=== PATIENT | male | born 1970 | race Caucasian/White ===

== ENCOUNTER 2017-06-19 10:00 | Inpatient (IN) | payer OTHER ==
[~2017-06-19] VITALS: Ht 175.3 cm; Wt 78.2 kg
[~2017-06-19 10:00] MED LIST: AMLO-511 PO; CHLO25CA5 PO; OMEP10CA2 PO; [UNRECOGNIZED DRUG - OTHER] PO
[2017-06-19] MEDS ORDERED: HALO50VI4 IM (10:07)
[2017-06-19 10:37] LABS: GLUCOSE,POINT OF CARE 93 MG/DL (70-110)
[2017-06-19 11:02] LABS: BASOPHILS % (AUTO) 0.2 % (0.0-2.0); EOSINOPHILS % (AUTO) 0.1 % (1.0-6.0); HEMATOCRIT 43.2 % (41-53); HEMOGLOBIN 14.8 g/dL (13.5-17.5); LYMPHOCYTES # (AUTO) 0.9 K/uL (1.0-4.8); LYMPHOCYTES % (AUTO) 7.9 % (22.0-44.0); MEAN CORPUSCULAR HEMOGLOBIN 32.7 pg (26.0-34.0); MEAN CORPUSCULAR HGB CONC 34.2 G/dL (31.0-37.0); MEAN CORPUSCULAR VOLUME 96 fL (80-100); MONOCYTES # (AUTO) 0.9 K/uL (0.1-1.0); MONOCYTES % (AUTO) 7.6 % (2.0-9.0); NEUTROPHILS # (AUTO) 10.1 K/uL (1.8-7.7); NEUTROPHILS % (AUTO) 84.2 % (40.0-70.0); PLATELET COUNT (AUTO) 106 K/uL (150-450); RED BLOOD CELL COUNT(AUTO) 4.52 MIL/uL (4.50-5.90); RED CELL DISTRIBUTION WIDTH 16.8 % (11.5-14.5)
[2017-06-19 11:22] LABS: ANION GAP 17 mmol/L (8-16); CALCIUM, TOTAL 8.2 mg/dL (8.8-10.5); CARBON DIOXIDE 21 mmol/L (22-29); CHLORIDE 100 mmol/L (98-107); CREATININE 0.72 mg/dL (0.60-1.30); GLOMERULAR FILTR. RATE CALC > 60 mL/min (>60); POTASSIUM 4.6 mmol/L (3.5-5.1); SODIUM SERUM 138 mmol/L (136-145); UREA NITROGEN, BLOOD 6 mg/dL (7-18)
[2017-06-19 11:25] LABS: ALANINE AMINOTRANSFERASE 48 U/L (12-78); ALBUMIN 4.2 g/dL (3.4-5.0); ASPARTATE AMINOTRANSFERASE 111 U/L (15-37); BILIRUBIN,TOTAL 1.5 mg/dL (0.1-1.0); TOTAL PROTEIN, SERUM 7.9 g/dL (6.4-8.2)
[2017-06-19] MEDS ORDERED: MAGNESIUM SULFATE 2 GM, MVI, ADULT NO.1 WITH VIT K 10 ML, THIAMINE HCL 100 MG, FOLIC AC... IV ONE ×5 (11:30)
[2017-06-19] MEDS ORDERED: LORazepam 2 MG/ML VIAL IM ONE (11:30)
[2017-06-19] MEDS: SODIUM CHLORIDE 0.9% 1,000 ML IV ONE ×2 (12:05→12:17)
[2017-06-19] MEDS ORDERED: ONDANSETRON HCL 4 MG/2 ML VIAL IVP ONE (12:15)
[2017-06-19] MEDS ORDERED: LORazepam 2 MG/ML VIAL IVP ONE (12:15)
[2017-06-19] MEDS ORDERED: ACETAMINOPHEN 325 MG TABLET PO PRN ×2 (12:45→13:00)
[2017-06-19] MEDS ORDERED: 0.9% SODIUM CHLORIDE 10 ML SYRINGE IVP PRN (12:45)
[2017-06-19] MEDS ORDERED: ONDANSETRON HCL 4 MG/2 ML VIAL IVP PRN ×2 (12:45→13:00)
[2017-06-19] MEDS ORDERED: MAGNESIUM SULFATE 2 GM in DEXTROSE 5%-WATER 50 ML IV PRN (13:00)
[2017-06-19] MEDS ORDERED: MAGNESIUM SULFATE 4 GM/WATER 100 ML IV PRN (13:00)
[2017-06-19] MEDS ORDERED: MAGNESIUM HYDROXIDE SUSPENSION 30 ML UDCUP PO PRN (13:00)
[2017-06-19] MEDS: SODIUM CHLORIDE 0.9% 1,000 ML IV SCH (13:00)
[2017-06-19] MEDS ORDERED: POTASSIUM CHLORIDE 20 MEQ ER TABLET PO PRN (13:00)
[2017-06-19] MEDS ORDERED: MAGNESIUM OXIDE 400 MG TABLET PO PRN (13:00)
[2017-06-19] MEDS ORDERED: POTASSIUM CHL 10 MEQ/WATER 50 ML IV PRN (13:00)
[2017-06-19] MEDS: PANTOPRAZOLE SODIUM 40 MG/VIAL IVP SCH (14:05)
[2017-06-19] MEDS: ChlordiazePOXIDE HCL 25 MG CAPSULE PO SCH ×2 (14:05→17:21)
[2017-06-19 14:50] VITALS: BP 157/100
[2017-06-19 16:21] VITALS: BP 155/102
[2017-06-19] MEDS ORDERED: INFLUENZA VIRUS VACCINE QVS 2017-18 (3YR+)/PF 60 MCG/0.5 ML SYRINGE IM ONE (17:00)
[2017-06-19 17:16] VITALS: BP 155/98
[2017-06-19] MEDS: LORazepam 2 MG/ML VIAL IVP PRN (18:24)
[2017-06-19 19:44] VITALS: BP 152/101
[2017-06-19] MEDS: DOCUSATE SODIUM 100 MG CAPSULE PO SCH (20:18)
[2017-06-20 00:03] VITALS: BP 137/91
[2017-06-20] MEDS: ChlordiazePOXIDE HCL 25 MG CAPSULE PO SCH ×5 (00:07→23:44)
[2017-06-20] MEDS: SODIUM CHLORIDE 0.9% 1,000 ML IV SCH ×2 (02:20→16:59)
[2017-06-20 04:55] VITALS: BP 154/97
[2017-06-20 06:07] LABS: BASOPHILS % (AUTO) 0.8 % (0.0-2.0); EOSINOPHILS % (AUTO) 1.4 % (1.0-6.0); HEMATOCRIT 41.4 % (41-53); LYMPHOCYTES # (AUTO) 1.1 K/uL (1.0-4.8); LYMPHOCYTES % (AUTO) 26.7 % (22.0-44.0); MEAN CORPUSCULAR HEMOGLOBIN 32.6 pg (26.0-34.0); MEAN CORPUSCULAR HGB CONC 33.8 G/dL (31.0-37.0); MEAN CORPUSCULAR VOLUME 96 fL (80-100); MONOCYTES # (AUTO) 0.6 K/uL (0.1-1.0); MONOCYTES % (AUTO) 13.9 % (2.0-9.0); NEUTROPHILS # (AUTO) 2.4 K/uL (1.8-7.7); NEUTROPHILS % (AUTO) 57.2 % (40.0-70.0); RED BLOOD CELL COUNT(AUTO) 4.29 MIL/uL (4.50-5.90); RED CELL DISTRIBUTION WIDTH 16.4 % (11.5-14.5); WHITE BLOOD COUNT (AUTO) 4.1 K/uL (4.5-11.0)
[2017-06-20 06:36] LABS: ALANINE AMINOTRANSFERASE 37 U/L (12-78); ALBUMIN 3.4 g/dL (3.4-5.0); ANION GAP 11 mmol/L (8-16); ASPARTATE AMINOTRANSFERASE 64 U/L (15-37); BILIRUBIN,TOTAL 0.9 mg/dL (0.1-1.0); CALCIUM, TOTAL 7.6 mg/dL (8.8-10.5); CARBON DIOXIDE 24 mmol/L (22-29); CHLORIDE 103 mmol/L (98-107); CREATININE 0.72 mg/dL (0.60-1.30); GLOMERULAR FILTR. RATE CALC > 60 mL/min (>60); POTASSIUM 3.7 mmol/L (3.5-5.1); SODIUM SERUM 138 mmol/L (136-145); TOTAL PROTEIN, SERUM 6.5 g/dL (6.4-8.2); UREA NITROGEN, BLOOD 5 mg/dL (7-18)
[2017-06-20 06:47] LABS: PLATELET COUNT (AUTO) 84 K/uL (150-450)
[2017-06-20 07:00] VITALS: BP 159/94
[2017-06-20] MEDS: MULTIVITAMINS WITH MINERALS, THERAPEUTIC TABLET PO SCH (08:08)
[2017-06-20] MEDS: PANTOPRAZOLE SODIUM 40 MG/VIAL IVP SCH (08:08)
[2017-06-20] MEDS: DOCUSATE SODIUM 100 MG CAPSULE PO SCH ×2 (08:08→22:48)
[2017-06-20 08:37] LABS: RBC MORPHOLOGY COMMENT NORMAL RBC MORPH
[2017-06-20] MEDS: LORazepam 2 MG/ML VIAL IVP PRN ×3 (09:16→22:44)
[2017-06-20 11:26] VITALS: BP 146/99
[2017-06-20 15:41] VITALS: BP 142/92
[2017-06-20 19:46] VITALS: BP 143/93
[2017-06-21 00:16] VITALS: BP 131/84
[2017-06-21 05:06] VITALS: BP 139/87
[2017-06-21] MEDS: ChlordiazePOXIDE HCL 25 MG CAPSULE PO SCH ×2 (06:28→11:08)
[2017-06-21] MEDS: SODIUM CHLORIDE 0.9% 1,000 ML IV SCH (06:29)
[2017-06-21 07:15] VITALS: BP 143/96
[2017-06-21] MEDS: DOCUSATE SODIUM 100 MG CAPSULE PO SCH (08:12)
[2017-06-21] MEDS: PANTOPRAZOLE SODIUM 40 MG/VIAL IVP SCH (08:12)
[2017-06-21] MEDS: LORazepam 2 MG/ML VIAL IVP PRN ×2 (08:13→12:15)
[2017-06-21] MEDS: MULTIVITAMINS WITH MINERALS, THERAPEUTIC TABLET PO SCH (08:13)
[2017-06-21 11:20] VITALS: BP 139/94
[2017-06-21 15:40] VITALS: BP 159/103
== END 2017-06-21 17:05 | disposition home or self-care (01) | DRG 775 ==
LOC: EMS 10:05 → 5N 13:10
PROVIDERS: ADMIT Internal Medicine; ATTEND Internal Medicine
PROC: 3E0234Z Introduction of Serum, Toxoid and Vaccine into Muscle, Percutaneous Approach (ICD-10-PCS; principal; 2017-06-19)
DX: F10.239 Alcohol dependence with withdrawal, unspecified (principal); D69.59 Other secondary thrombocytopenia; E83.42 Hypomagnesemia; E83.51 Hypocalcemia; I10 Essential (primary) hypertension; Y90.9 Presence of alcohol in blood, level not specified; M10.9 Gout, unspecified; M19.90 Unspecified osteoarthritis, unspecified site; Z87.891 Personal history of nicotine dependence; Z23 Encounter for immunization; Z79.899 Other long term (current) drug therapy
CPT/HCPCS: 82962; 83735; 90471; 93005; 96365; 96372; 96374; 96375; 99285; C9113; G0480; J2060; J2405; J3411; J3475; J3490; J7030